=== PATIENT | male | born 1990 ===

== ENCOUNTER 2017-06-09 23:04 | Emergency (ER) | payer OTHER ==
[2017-06-09 23:30] VITALS: BP 139/72; PULSE 102; TEMP 97.8; O2SAT 100
--- NOTE | 2017-06-10 00:25 | C.PDOC ---
History Of Present Illness 27 year old male with no significant PMHx or known allergens presents to the ED with complaints of a rash beginning just a few hours prior to arrival. Patient reports earlier today having a sore throat and subjective fever so he took one Cipro and 1 amoxicillin tablet and noticed a diffuse rash two hours later. Patient denies shortness of breath, throat swelling, fever, chills, lips swelling, or other complaints at this time. Time Seen by Provider: 06/09/17 23:31 Chief Complaint (Nursing): ENT Problem History Per: Patient History/Exam Limitations: no limitations Onset/Duration Of Symptoms: Hrs Current Symptoms Are (Timing): Still Present Quality Of Symptoms: Itching. denies: Draining Recent travel outside of the [place]: No Past Medical History Reviewed: Historical Data, Nursing Documentation, Vital Signs Vital Signs: Last Vital Signs Temp 97.8 F 06/09/17 23:27 Pulse 102 H 06/09/17 23:27 Resp 20 06/10/17 00:37 BP 139/72 06/09/17 23:27 Pulse Ox 100 06/10/17 02:19 Family History: States: Unknown Family Hx - Social History Hx Alcohol Use: No Hx Substance Use: No - Immunization History Hx Tetanus Toxoid Vaccination: No Hx Influenza Vaccination: No Hx Pneumococcal Vaccination: No Review Of Systems Constitutional: Negative for: Fever, Chills Respiratory: Negative for: Cough, Shortness of Breath Gastrointestinal: Negative for: Nausea, Vomiting, Abdominal Pain, Diarrhea Skin: Positive for: Rash Physical Exam - Physical Exam Appears: Non-toxic, No Acute Distress Skin: Warm, Dry, Rash (diffuse erythematus scattered hives ) Head: Atraumatic, Normacephalic, No Tenderness Eye(s): bilateral: Normal Inspection, PERRL, EOMI Ear(s): Bilateral: Normal Nose: Normal, No Discharge Oral Mucosa: Moist Tongue: Normal Appearing, No Swelling Throat: Normal, No Erythema, No Exudate Neck: Supple Chest: Symmetrical, No Deformity Cardiovascular: Rhythm Regular, No Murmur Respiratory: No Rales, No Rhonchi, No Wheezing, Other (clear to auscultation bilaterally ) Gastrointestinal/Abdominal: Soft, No Tenderness, No Distention, No Guarding, No Rebound Extremity: Normal ROM, No Tenderness Neurological/Psych: Oriented x3 ED Course And Treatment O2 Sat by Pulse Oximetry: 100 (RA) Pulse Ox Interpretation: Normal Progress Note: Patient was given Prednisone and Benadryl. Medical Decision Making Medical Decision Making: Patient instructed to desist with taking Cipro and Amoxocillin. Patient is stable in no resp distress, instructed to take Tylenol or Advil for throat pain and to follow up in the clinic. Disposition Counseled Patient/Family Regarding: Diagnosis, Need For Followup, Rx Given - Disposition Referrals: Non [facility] Provider, [Primary Care Provider] - Disposition: HOME/ ROUTINE Disposition Time: 00:22 Condition: STABLE Additional Instructions: Do not take cipro or amoxicillin May take tylenol or advil for pain Take meds as prescribed May take claritin or zyrtec OTC if benaryl causes drowsiness Return to ER if worse Prescriptions: DiphenhydrAMINE [Benadryl] 25 mg PO QID #20 cap predniSONE [Prednisone] 40 mg PO DAILY #8 tab Instructions: Urticaria (ED) Forms: [employer] (French) - Clinical Impression Clinical Impression: Allergic urticaria - PA / PRESIDENT / Resident Statement MD/DO has reviewed & agrees with the documentation as recorded. - Scribe Statement The provider has reviewed the documentation as recorded by the Scribe Vannessa Jimenez All medical record entries made by the Byron were at my direction and personally dictated by me. I have reviewed the chart and agree that the record accurately reflects my personal performance of the history, physical exam, medical decision making, and the department course for this patient. I have also personally directed, reviewed, and agree with the discharge instructions and disposition.
[2017-06-10 00:38] VITALS: RESP 20
== END 2017-06-10 00:37 | disposition home or self-care (01) ==
LOC: SUPCPDRO 23:04 → C.ER 23:04
DX: L50.0 Allergic urticaria (principal)